=== PATIENT | male | born 1960 | race Two or more races ===

== ENCOUNTER 2017-05-19 10:33 | Outpatient (CLI) | payer OTHER | END 2017-05-19 10:37 | disposition home or self-care (01) | LOC: LAB 10:33 | DX: J44.9 Chronic obstructive pulmonary disease, unspecified (principal) ==

== ENCOUNTER → 2017-10-11 | Outpatient (CLI) | payer OTHER | END | disposition home or self-care (01) | LOC: MAMO-SONO 10:15 → SONOGRAMA 10:31 | DX: R10.9 Unspecified abdominal pain (principal) ==

== ENCOUNTER 2018-01-19 15:05 | Inpatient (IN) | payer OTHER ==
[~2018-01-19] VITALS: Ht 147.3 cm; Wt 59.9 kg
[2018-01-19] MEDS ORDERED: ADVAIR HFA 230/12 GM (17:40)
[2018-01-19] MEDS ORDERED: THEOPHYLLINE A400 MG (17:40)
[2018-01-19] MEDS ORDERED: BETAMETHASONE D60 ML (17:40)
[2018-01-19] MEDS ORDERED: FLONASE16 GM (17:40)
[2018-01-19] MEDS ORDERED: AZELASTINE137 MCG/0. (17:41)
[2018-02-21] MEDS ORDERED: Theo-24 PO (13:41)
[2018-02-21] MEDS ORDERED: TRIPLE ANTIB28.35 GM TOP (13:41)
[2018-02-21] MEDS ORDERED: ADVAIR HFA 230/12 GM MD (13:43)
[2018-02-21] MEDS ORDERED: AZELASTINE137 MCG/0. MD (13:44)
== END 2018-02-21 14:06 | disposition home or self-care (01) | DRG 579 ==
LOC: MEDI 15:05
PROC: BW25Y0Z Computerized Tomography (CT Scan) of Chest, Abdomen and Pelvis using Other Contrast, Unenhanced and Enhanced (ICD-10-PCS; 2018-01-19)
PROC: 0WBF3ZX Excision of Abdominal Wall, Percutaneous Approach, Diagnostic (ICD-10-PCS; principal; 2018-01-20)
PROC: 0F943ZZ Drainage of Gallbladder, Percutaneous Approach (ICD-10-PCS; 2018-01-20)
PROC: 0J9830Z Drainage of Abdomen Subcutaneous Tissue and Fascia with Drainage Device, Percutaneous Approach (ICD-10-PCS; 2018-01-20)
PROC: 02HV33Z Insertion of Infusion Device into Superior Vena Cava, Percutaneous Approach (ICD-10-PCS; 2018-01-28)
PROC: BW25YZZ Computerized Tomography (CT Scan) of Chest, Abdomen and Pelvis using Other Contrast (ICD-10-PCS; 2018-02-02)
PROC: 3E0F7GC Introduction of Other Therapeutic Substance into Respiratory Tract, Via Natural or Artificial Opening (ICD-10-PCS; 2018-02-05)
PROC: BW21Y0Z Computerized Tomography (CT Scan) of Abdomen and Pelvis using Other Contrast, Unenhanced and Enhanced (ICD-10-PCS; 2018-02-09)
PROC: BW24Y0Z Computerized Tomography (CT Scan) of Chest and Abdomen using Other Contrast, Unenhanced and Enhanced (ICD-10-PCS; 2018-02-18)
DX: L02.211 Cutaneous abscess of abdominal wall (principal); K65.1 Peritoneal abscess; K82.A2 Perforation of gallbladder in cholecystitis; K80.00 Calculus of gallbladder with acute cholecystitis without obstruction; L03.311 Cellulitis of abdominal wall; J45.50 Severe persistent asthma, uncomplicated; M41.03 Infantile idiopathic scoliosis, cervicothoracic region; R09.02 Hypoxemia; Z53.09 Procedure and treatment not carried out because of other contraindication; B96.89 Other specified bacterial agents as the cause of diseases classified elsewhere; I80.8 Phlebitis and thrombophlebitis of other sites; K59.09 Other constipation
CPT/HCPCS: 240

== ENCOUNTER 2019-02-04 07:17 | Outpatient (CLI) | payer OTHER ==
[~2019-02-04 07:17] MED LIST: ADVAIR HFA 230/12 GM; ADVAIR HFA 230/12 GM MD; AZELASTINE137 MCG/0.; AZELASTINE137 MCG/0. MD; BETAMETHASONE D60 ML; FLONASE16 GM; THEOPHYLLINE A400 MG; TRIPLE ANTIB28.35 GM TOP; Theo-24 PO
== END 2019-02-04 17:00 | disposition home or self-care (01) ==
LOC: TOM 07:17
DX: K56.600 Partial intestinal obstruction, unspecified as to cause (principal); Z12.11 Encounter for screening for malignant neoplasm of colon